=== PATIENT | male | born 1965 | race Caucasian/White ===

== ENCOUNTER → 2016-07-09 | Outpatient (CLI) | payer BC ==
[~2016-07-09] MED LIST: ESCI1TAB6 PO; LEVO175T3 PO; MULT-506 PO
[2016-07-09 11:01] LABS: ALT/SGPT 51 U/L (12-78); BLOOD UREA NITROGEN 13 mg/dl (7-18); CALCIUM 9.2 mg/dl (8.5-10.1); CARBON DIOXIDE 26 mmol/L (21-32); CHLORIDE 106 mmol/L (98-107); CHOLESTEROL 173 mg/dl (0-200); GLUCOSE 92 mg/dl (70-99); SODIUM 142 mmol/L (136-145)
[2016-07-09 11:12] LABS: ALB/GLOB RATIO 1.1 (0.9-2); ALKALINE PHOSPHATASE 60 U/L (45-117); AST/SGOT 28 U/L (15-37); HDL CHOLESTEROL 58 mg/dl; LDL CHOLESTEROL CALCULATED 92 mg/dl; TRIGLYCERIDES 113 mg/dl (0-150); VERY LOW DENSITY LIPOPROT CALC 23 mg/dl
== END | disposition home or self-care (01) ==
LOC: C.LABBC 07:49
PROVIDERS: ATTEND Nurse Practitioner Family
DX: E03.9 Hypothyroidism, unspecified (principal); E78.5 Hyperlipidemia, unspecified

== ENCOUNTER → 2017-02-04 | Outpatient (CLI) | payer BC ==
[2017-02-04 11:22] LABS: ALT/SGPT 36 U/L (12-78); AST/SGOT 26 U/L (15-37); BLOOD UREA NITROGEN 21 mg/dl (7-18); BUN/CREATININE RATIO 19.4 (10-20); CALCIUM 8.3 mg/dl (8.5-10.1); CARBON DIOXIDE 29 mmol/L (21-32); CHLORIDE 107 mmol/L (98-107); GLUCOSE 89 mg/dl (70-99); POTASSIUM 3.9 mmol/L (3.5-5.1); SODIUM 142 mmol/L (136-145)
[2017-02-04 11:33] LABS: ALB/GLOB RATIO 1.1 (0.9-2); ALKALINE PHOSPHATASE 69 U/L (45-117); CHOLESTEROL 172 mg/dl (0-200); CHOLESTEROL/HDL RATIO 2.6; HDL CHOLESTEROL 65 mg/dl; LDL CHOLESTEROL CALCULATED 94 mg/dl; TRIGLYCERIDES 63 mg/dl (0-150); VERY LOW DENSITY LIPOPROT CALC 13 mg/dl
== END | disposition home or self-care (01) ==
LOC: C.LABBC 07:41
PROVIDERS: ATTEND Nurse Practitioner Family
DX: E78.5 Hyperlipidemia, unspecified (principal); E03.9 Hypothyroidism, unspecified

== ENCOUNTER → 2017-03-18 | Outpatient (CLI) | payer BC ==
[2017-03-22 16:21] LABS: 18KDIGG BAND NONREACTIVE (NONREACTIVE); 23KDIGG BAND NONREACTIVE (NONREACTIVE); 23KDIGM BAND NONREACTIVE (NONREACTIVE); 28KDIGG BAND NONREACTIVE (NONREACTIVE); 30KDIGG BAND NONREACTIVE (NONREACTIVE); 39KDIGG BAND NONREACTIVE (NONREACTIVE); 39KDIGM BAND NONREACTIVE (NONREACTIVE); 41KDIGG BAND REACTIVE (NONREACTIVE); 41KDIGM BAND NONREACTIVE (NONREACTIVE); 45KDIGG BAND NONREACTIVE (NONREACTIVE); 58KDIGG BAND NONREACTIVE (NONREACTIVE); 66KDIGG BAND REACTIVE (NONREACTIVE); 93KDIGG BAND NONREACTIVE (NONREACTIVE)
== END | disposition home or self-care (01) ==
LOC: C.LABBC 08:10
PROVIDERS: ATTEND Nurse Practitioner Family
DX: H90.5 Unspecified sensorineural hearing loss (principal); H93.A9 Pulsatile tinnitus, unspecified ear

== ENCOUNTER → 2017-08-09 | Outpatient (CLI) | payer OTHER ==
[2017-08-09 11:22] LABS: ALBUMIN 3.7 gm/dl (3.4-5.0); ALT/SGPT 78 U/L (12-78); AST/SGOT 30 U/L (15-37); BLOOD UREA NITROGEN 13 mg/dl (7-18); CALCIUM 8.8 mg/dl (8.5-10.1); CARBON DIOXIDE 28 mmol/L (21-32); CHOLESTEROL 157 mg/dl (0-200); CREATININE 0.99 mg/dl (0.60-1.40); GLUCOSE 93 mg/dl (70-99); POTASSIUM 3.8 mmol/L (3.5-5.1); SODIUM 140 mmol/L (136-145)
[2017-08-09 11:31] LABS: ALKALINE PHOSPHATASE 54 U/L (45-117); LDL CHOLESTEROL CALCULATED 92 mg/dl; TOTAL PROTEIN 7.3 gm/dl (6.4-8.2)
== END | disposition home or self-care (01) ==
LOC: C.LABBC 08:17
PROVIDERS: ATTEND Nurse Practitioner Family
DX: E03.9 Hypothyroidism, unspecified (principal); E78.5 Hyperlipidemia, unspecified

== ENCOUNTER 2025-04-16 14:16 | Observation (INO) ==
[2025-04-16 14:59] LABS: Hematocrit (blood only) 45.9 % (42.0-52.0); Hemoglobin 15.8 g/dL (14.0-18.0); Immature Granulocytes # (auto) 0.06 K/uL (0.01-0.20); Immature Granulocytes % (auto) 0.4 %; Mean Corpuscular Hemoglobin 31.2 pg (25.0-34.0); Mean Corpuscular Volume 90.5 fL (80.0-100.0); Platelet Count 243 K/uL (130-400); RDW Standard Deviation 43.8 fL (36.4-46.3); Red Blood Count 5.07 M/uL (4.70-6.10); White Blood Count 16.29 K/ul (4.8-10.8)
[2025-04-16] MEDS: SODIUM CHLORIDE 0.9% 1,000 ML IV ONE (15:00)
--- NOTE | 2025-04-16 15:13 | XRay Report ---
XR chest 1V not portable CLINICAL HISTORY: Chest pain, nonspecific COMPARISON STUDY: 08/22/2023 FINDINGS: Heart size and pulmonary vasculature are normal. No consolidation or pleural effusion. No p neumothorax. IMPRESSION: No acute findings. ACT 112: Negative or not required by law. Electronically signed by: Joao Angulo M.D. 04/16/2025 3:12 PM
[2025-04-16 15:17] LABS: Alanine Aminotransferase 26.0 U/L (7-52); Albumin Globulin Ratio 1.5 (0.9-2); Albumin Level 4.6 gm/dl (3.4-5.0); Alkaline Phosphatase 74.0 U/L (34-104); Anion Gap 7.0 (3-11); Bilirubin,Total 1.0 mg/dl (0.2-1.0); Blood Urea Nitrogen 21.0 mg/dl (6-23); Calcium 9.7 mg/dl (8.6-10.3); Carbon Dioxide 25.0 mmol/L (21-32); Chloride 106.0 mmol/L (98-107); Creatinine Clr Calc Pharmacy 99.5 ml/min; Globulin 3.0 gm/dl (2.5-4.0); Glucose 108.0 mg/dl (70-99(Fasting)); Lipase 16.0 U/L (11-82); Magnesium 2.0 mg/dl (1.7-2.4); Potassium 3.7 mmol/L (3.5-5.1); Sodium 138.0 mmol/L (136-145); Total Protein 7.6 gm/dl (6.0-8.3)
[2025-04-16 15:32] LABS: Thyroid Stimulating Hormone 3.635 uIu/ml (0.300-4.500)
--- NOTE | 2025-04-16 16:52 | Emergency Department Note ---
Impression & Plan Chest pain, Lightheadedness, Elevated troponin ED Provider Note NAME: AYDEN DOBBS AGE: 60 SEX: M : 1965 ARRIVES VIA: Walk-In INFORMANT: Patient ED PROVIDER(S): Juan Jose Lozoya DO CHIEF COMPLAINT: Chest pain, lightheadedness HPI: Patient is a 60-year-old male with a past medical history of pulmonary node, hyperlipidemia who presents to the ER for symptoms that started today around 11 AM. He describes some mid chest pain which has been constant and subtle since then. Patient denies any arm pain but does admit that he felt his heart racing then. He is [employer] Watch was suggesting that maybe he had an episode of A-fib. Heart rate was racing from about 11-2. He notes he does not notice it anymore and is not giving any warnings. He was feeling lightheaded with changing of positions. He was not feeling dizzy. Lightheadedness with changing in position still occurs. Denies any dysuria, urgency or frequency. Patient denies swelling of calves, recent trips, history of immobilization or recent surgery, prior history of DVT, hemoptysis, history of malignancy, and history of smoking. ADDITIONAL HISTORY OBTAINED: Per HPI Chronic Medical/Social Conditions Affecting Care: Per HPI PAST MEDICAL HISTORY:See Below PAST SURGICAL HISTORY:See Below FAMILY HISTORY:See Below SOCIAL HISTORY:See Below HOME MEDICATIONS:See Below ALLERGIES:See Below VITALS:See Below PHYSICAL EXAMINATION: GENERAL: Sitting up in bed, alert, well appearing, well nourished, no distress, non-toxic EYE EXAM: normal conjunctiva. PERRL and EOM's grossly intact. OROPHARYNX: no exudate, no erythema, lips, buccal mucosa, and tongue normal and mucous membranes are moist NECK: supple, no nuchal rigidity, no adenopathy, non-tender LUNGS: Clear to auscultation. Normal chest wall mechanics HEART: no murmurs, S1 normal and S2 normal ABDOMEN: abdomen soft, non-tender, normo-active bowel sounds, no masses, no rebound or guarding. UPPER EXTREMITIES: upper extremities are grossly normal. Radial pulses are equal bilaterally LOWER EXTREMITIES: No pitting edema. Calves are equal bilaterally NEURO EXAM: Normal sensorium, cranial nerves II-XII grossly intact, normal speech, no gross weakness of arms, no gross weakness of legs. MEDICAL DECISION MAKING: Patient is a 60-year-old male with a past medical history of hyperlipidemia who presents to the ER for the above-stated complaint. Patient while he was receiving blood work in the waiting room/triage had a near syncopal episode. He notes the lightheadedness only occurs when he changes positions. IV was established and blood work was obtained. Labs showed a mild leukocytosis of 16,000. No significant anemia. D-dimer was negative and low risk patient will not be pursued any further. CMP along with LFTs bilirubin and lipase was reassuring. TSH was normal. Initial troponin was negative. I had a protracted conversation with both the patient and the at bedside and recommended admission for observation and close monitoring of the telemetry and he declined. He was given IV fluids while here and was feeling better. He was also given aspirin. Patient was agreeable to getting a repeat troponin. This came back elevated at 24. Following this he was agreeable to staying overnight. Question if this was rate related due to the heart rates being elevated for 2 hours in the 130s. It was difficult to evaluate on the iPhone whether this truly was A- fib or not. He will remain on the monitor here. I discussed the case with the hospitalist for further evaluation management treatment. Consults/Care Managements Discussions: Per [facility] Triage Nursing notes reviewed. Limited review of prior medical records performed Vital Signs: reviewed and remarkable for no significant abnormalities Differential diagnosis: Cardiac ischemia, aortic dissection, pulmonary embolism, pneumothorax, pneumonia, pericarditis, myocarditis, esophageal rupture, GERD, cholecystitis, pancreatitis, musculoskeletal, as well as other pathologies. ER treatment provided: See below Diagnostics interpreted by me include EKG and cardiac monitoring as listed below: -Cardiac Monitoring: An order was placed for continuous cardiac monitoring. The monitor shows a rate of 71 with sinus rhythm. -ECG: Sinus rhythm rate is 90 Right axis no PVCs Nonspecific ST wave changes in lead III and aVF which is not significant change from previous T wave inversion in V2 which is new -Laboratory studies:Interpreted by me as stated above in MDM and shown below. Imaging studies: Xrays: As interpreted by me: Portable AP upright 1 view of the chest shows no focal Lutrate CTs show: none Procedures:none Critical Care: None Past Med/Surg History Problem List (Updated 04/16/25 @ 17:31 by Juan Jose Lozoya DO) Elevated troponin (Acute) Lightheadedness (Acute) Chest pain (Acute) Pulmonary nodule Erectile dysfunction Vitamin B 12 deficiency Vitamin D deficiency (Acute) Sensorineural hearing loss (Acute) Pulsatile tinnitus (Acute) Need for hepatitis C screening test (Acute) Hypothyroidism (Acute) Hyperlipidemia (Acute) Generalized anxiety disorder (Acute) Cerebral microvascular disease (Acute) Medical History Gluten intolerance History of cardiac murmur as a child Pulmonary nodule Hx of fracture of arm Hyperlipidemia Hypothyroidism History of bladder stone Generalized anxiety disorder Surgical History Hx of colonoscopy History of cystoscopy Family History Father Prostate cancer Diabetes Cardiac disorder Colon cancer Hypotension Myocardial infarction Mother Diabetes Vitamin B12 deficiency Hypertension Myocardial infarction Unknown Colon cancer Grandmother Hypertension Sister Kidney stones Multiple sclerosis Grandmother Rheumatoid arthritis Grandfather Alcoholism Denies family history of Ovarian cancer Breast cancer Social History Smoking Status: Never smoker Second Hand Exposure: No; Do You Dip or Chew Tobacco: No; Hx Alcohol Use: Yes Alcohol type: beer Alcohol Intake Frequency: 2-3 x/Week Hx Substance Use: No Preferred Language: Japanese Communication Ability: Effective Visual Impairment: No Limitations Hearing Ability: Use of Hearing Aid Security Shift Manager Required: No Beliefs That Will Affect Care: None marital status: Current Living Situation: Spouse current occupational status: retired 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 How many Children do You have: 2 Feels Safe at Home: Yes Childhood Exposure to Second-Hand Smoke: No Diet: regular caffeine: Yes during the past year weight has: remained stable Dental Care, Regularly: Yes Physical Activity Frequency: Daily Seatbelt Use: always Sunscreen Use: Yes Assistive Devices: Glasses and Hearing Aid - Bilateral Allergies Allergies Allergy/AdvReac Type Severity Reaction Status Date / Time gluten AdvReac Mild Nausea Verified 04/16/25 16:03 lactose AdvReac Mild Nausea Verified 04/16/25 16:03 Home Meds Home Medications Medication Instructions Recorded Confirmed cholecalciferol (vitamin D3) 50 2,000 units PO DAILY 01/07/19 04/16/25 mcg (2,000 unit) capsule multivitamin (Daily Multi-Vitamin 1 tab PO DAILY 01/07/19 04/16/25 tablet) escitalopram oxalate 5 mg tablet 5 mg PO DAILY 04/16/25 04/16/25 magnesium glycinate 120 mg (as 120 mg PO DAILY 04/16/25 04/16/25 glycinate) capsule omega-3 fatty acids 1,000 mg 1,000 mg PO DAILY 04/16/25 04/16/25 capsule zinc acetate 50 mg (zinc) capsule 50 mg PO DAILY 04/16/25 04/16/25 Previous Rx's Medication Instructions Recorded cyclobenzaprine 10 mg tablet 10 mg PO HS #20 tabs 08/05/24 albuterol sulfate 90 mcg/actuation 1 inh inhalation QID PRN shortness 02/25/25 aerosol inhaler of breath or wheezing #8.5 grams atorvastatin 20 mg tablet 20 mg PO QPM #90 tabs 02/25/25 coenzyme Q10 75 mg capsule (Ultra 75 mg PO DAILY #30 caps 02/25/25 CoQ10) levothyroxine 200 mcg tablet 200 mcg PO QAM #90 tabs 02/25/25 levothyroxine 25 mcg tablet 25 mcg PO QAM #90 tabs 02/25/25 sildenafil 50 mg tablet 50 mg PO DAILY PRN sexual activity 02/25/25 #20 tabs Results & Data (ED) Vital Signs Vital Signs - 24 hr 04/16/25 14:33 04/16/25 14:42 04/16/25 14:56 Temperature 36.6 C Temperature Source Temporal Artery Scan Pulse Rate 110 H Pulse Rate from SpO2 Sensor Respiratory Rate 20 Respiratory Effort / Characteristics Non-Labored Spontaneous Respiratory Depth Normal Respiratory Pattern Regular Blood Pressure 118/76 94/65 L Blood Pressure Mean 90 70 Blood Pressure Position Sitting Pulse Oximetry 97 Oxygen Delivery Method Room Air Room Air Sepsis Recent Fever Within 48 Hours No Sepsis New/Unexplained Change in Mental Status No Sepsis Action Taken by Nursing No Action Required 04/16/25 14:56 04/16/25 15:00 04/16/25 15:00 Temperature Temperature Source Pulse Rate Pulse Rate from SpO2 Sensor Respiratory Rate Respiratory Effort / Characteristics Respiratory Depth Respiratory Pattern Blood Pressure 94/65 L 102/77 102/77 Blood Pressure Mean 70 82 82 Blood Pressure Position Pulse Oximetry Oxygen Delivery Method Sepsis Recent Fever Within 48 Hours Sepsis New/Unexplained Change in Mental Status Sepsis Action Taken by Nursing 04/16/25 15:00 04/16/25 15:00 04/16/25 15:00 Temperature Temperature Source Pulse Rate Pulse Rate from SpO2 Sensor Respiratory Rate Respiratory Effort / Characteristics Respiratory Depth Respiratory Pattern Blood Pressure 102/77 102/77 102/77 Blood Pressure Mean 82 82 82 Blood Pressure Position Pulse Oximetry Oxygen Delivery Method Sepsis Recent Fever Within 48 Hours Sepsis New/Unexplained Change in Mental Status Sepsis Action Taken by Nursing 04/16/25 15:00 04/16/25 15:02 04/16/25 15:12 Temperature Temperature Source Pulse Rate 69 70 67 Pulse Rate from SpO2 Sensor 69 67 Respiratory Rate 19 14 Respiratory Effort / Characteristics Respiratory Depth Respiratory Pattern Blood Pressure Blood Pressure Mean Blood Pressure Position Pulse Oximetry 99 94 Oxygen Delivery Method Sepsis Recent Fever Within 48 Hours Sepsis New/Unexplained Change in Mental Status Sepsis Action Taken by Nursing 04/16/25 15:21 04/16/25 15:30 04/16/25 15:30 Temperature Temperature Source Pulse Rate 89 Pulse Rate from SpO2 Sensor 76 Respiratory Rate 14 Respiratory Effort / Characteristics Respiratory Depth Respiratory Pattern Blood Pressure 127/80 127/80 Blood Pressure Mean 95 95 Blood Pressure Position Pulse Oximetry 96 Oxygen Delivery Method Sepsis Recent Fever Within 48 Hours Sepsis New/Unexplained Change in Mental Status Sepsis Action Taken by Nursing 04/16/25 15:30 04/16/25 15:30 04/16/25 15:30 Temperature Temperature Source Pulse Rate Pulse Rate from SpO2 Sensor Respiratory Rate Respiratory Effort / Characteristics Respiratory Depth Respiratory Pattern Blood Pressure 127/80 127/80 127/80 Blood Pressure Mean 95 95 95 Blood Pressure Position Pulse Oximetry Oxygen Delivery Method Sepsis Recent Fever Within 48 Hours Sepsis New/Unexplained Change in Mental Status Sepsis Action Taken by Nursing 04/16/25 15:30 04/16/25 15:42 04/16/25 15:51 Temperature Temperature Source Pulse Rate 66 62 61 Pulse Rate from SpO2 Sensor 66 62 61 Respiratory Rate 15 15 13 Respiratory Effort / Characteristics Respiratory Depth Respiratory Pattern Blood Pressure Blood Pressure Mean Blood Pressure Position Pulse Oximetry 94 96 96 Oxygen Delivery Method Sepsis Recent Fever Within 48 Hours Sepsis New/Unexplained Change in Mental Status Sepsis Action Taken by Nursing 04/16/25 16:00 04/16/25 16:00 04/16/25 16:00 Temperature Temperature Source Pulse Rate Pulse Rate from SpO2 Sensor Respiratory Rate Respiratory Effort / Characteristics Respiratory Depth Respiratory Pattern Blood Pressure 107/76 107/76 107/76 Blood Pressure Mean 84 84 84 Blood Pressure Position Pulse Oximetry Oxygen Delivery Method Sepsis Recent Fever Within 48 Hours Sepsis New/Unexplained Change in Mental Status Sepsis Action Taken by Nursing 04/16/25 16:00 04/16/25 16:00 04/16/25 16:00 Temperature Temperature Source Pulse Rate 63 Pulse Rate from SpO2 Sensor 54 L Respiratory Rate 13 Respiratory Effort / Characteristics Respiratory Depth Respiratory Pattern Blood Pressure 107/76 107/76 Blood Pressure Mean 84 84 Blood Pressure Position Pulse Oximetry 96 Oxygen Delivery Method Sepsis Recent Fever Within 48 Hours Sepsis New/Unexplained Change in Mental Status Sepsis Action Taken by Nursing 04/16/25 16:12 04/16/25 16:21 04/16/25 16:30 Temperature Temperature Source Pulse Rate 62 61 59 L Pulse Rate from SpO2 Sensor 62 61 59 L Respiratory Rate 14 13 15 Respiratory Effort / Characteristics Respiratory Depth Respiratory Pattern Blood Pressure Blood Pressure Mean Blood Pressure Position Pulse Oximetry 95 95 96 Oxygen Delivery Method Sepsis Recent Fever Within 48 Hours Sepsis New/Unexplained Change in Mental Status Sepsis Action Taken by Nursing 04/16/25 16:30 04/16/25 16:30 04/16/25 16:30 Temperature Temperature Source Pulse Rate Pulse Rate from SpO2 Sensor Respiratory Rate Respiratory Effort / Characteristics Respiratory Depth Respiratory Pattern Blood Pressure 105/73 105/73 105/73 Blood Pressure Mean 79 79 79 Blood Pressure Position Pulse Oximetry Oxygen Delivery Method Sepsis Recent Fever Within 48 Hours Sepsis New/Unexplained Change in Mental Status Sepsis Action Taken by Nursing 04/16/25 16:30 04/16/25 16:30 04/16/25 16:42 Temperature Temperature Source Pulse Rate 58 L Pulse Rate from SpO2 Sensor 58 L Respiratory Rate 19 Respiratory Effort / Characteristics Respiratory Depth Respiratory Pattern Blood Pressure 105/73 105/73 Blood Pressure Mean 79 79 Blood Pressure Position Pulse Oximetry 97 Oxygen Delivery Method Sepsis Recent Fever Within 48 Hours Sepsis New/Unexplained Change in Mental Status Sepsis Action Taken by Nursing 04/16/25 16:51 04/16/25 17:00 04/16/25 17:00 Temperature Temperature Source Pulse Rate 58 L Pulse Rate from SpO2 Sensor 59 L Respiratory Rate 14 Respiratory Effort / Characteristics Respiratory Depth Respiratory Pattern Blood Pressure 129/89 129/89 Blood Pressure Mean 104 104 Blood Pressure Position Pulse Oximetry 97 Oxygen Delivery Method Sepsis Recent Fever Within 48 Hours Sepsis New/Unexplained Change in Mental Status Sepsis Action Taken by Nursing 04/16/25 17:00 04/16/25 17:00 04/16/25 17:00 Temperature Temperature Source Pulse Rate Pulse Rate from SpO2 Sensor Respiratory Rate Respiratory Effort / Characteristics Respiratory Depth Respiratory Pattern Blood Pressure 129/89 129/89 129/89 Blood Pressure Mean 104 104 104 Blood Pressure Position Pulse Oximetry Oxygen Delivery Method Sepsis Recent Fever Within 48 Hours Sepsis New/Unexplained Change in Mental Status Sepsis Action Taken by Nursing 04/16/25 17:00 04/16/25 17:12 Temperature Temperature Source Pulse Rate 65 56 L Pulse Rate from SpO2 Sensor 64 56 L Respiratory Rate 15 12 Respiratory Effort / Characteristics Respiratory Depth Respiratory Pattern Blood Pressure Blood Pressure Mean Blood Pressure Position Pulse Oximetry 95 97 Oxygen Delivery Method Sepsis Recent Fever Within 48 Hours Sepsis New/Unexplained Change in Mental Status Sepsis Action Taken by Nursing Laboratory Data 04/16/25 14:45 04/16/25 14:45 Lab Results 04/16/25 04/16/25 04/16/25 Range/Units 14:45 16:42 Unknown WBC 16.29 H (4.8-10.8) K/ul RBC 5.07 (4.70-6.10) M/uL Hgb 15.8 (14.0-18.0) g/dL Hct 45.9 (42.0-52.0) % MCV 90.5 (80.0-100.0) fL MCH 31.2 (25.0-34.0) pg MCHC 34.4 (32.0-36.0) g/dL RDW Std Deviation 43.8 (36.4-46.3) fL RDW Coeff of Diego 13.3 (11.5-14.5) % Plt Count 243 (130-400) K/uL MPV 9.4 (9.4-12.4) fL Immature Gran % (Auto) 0.4 % Neut % (Auto) 78.3 % Lymph % (Auto) 15.0 % Tillman % (Auto) 5.2 % Eos % (Auto) 0.7 % Baso % (Auto) 0.4 % Neut # (Auto) 12.77 H (1.40-6.50) K/uL Lymph # (Auto) 2.45 (1.20-3.40) K/uL Tillman # (Auto) 0.84 H (0.11-0.59) K/uL Eos # (Auto) 0.11 (0.00-0.50) K/uL Baso # (Auto) 0.06 (0.00-0.20) K/uL Immature Gran # (Auto) 0.06 (0.01-0.20) K/uL D-Dimer < 190 (0-500) ug/L FEU Sodium 138 (136-145) mmol/L Potassium 3.7 (3.5-5.1) mmol/L Chloride 106 (98-107) mmol/L Carbon Dioxide 25 (21-32) mmol/L Anion Gap 7 (3-11) BUN 21 (6-23) mg/dl Creatinine 0.97 (0.6-1.4) mg/dl Est Cr Clr Drug Dosing 99.5 ml/min eGFR 88.26 BUN/Creatinine Ratio 21.6 H (10-20) Glucose 108 H (70-99(Fasting)) mg/dl Calcium 9.7 (8.6-10.3) mg/dl Magnesium 2.0 (1.7-2.4) mg/dl Total Bilirubin 1.0 (0.2-1.0) mg/dl AST 27 (13-39) U/L ALT 26 (7-52) U/L Alkaline Phosphatase 74 (34-104) U/L Troponin I High Sens 9.2 23.8 H D (0-20) pg/ml Total Protein 7.6 (6.0-8.3) gm/dl Albumin 4.6 (3.4-5.0) gm/dl Globulin 3.0 (2.5-4.0) gm/dl Albumin/Globulin Ratio 1.5 (0.9-2) Lipase 16 (11-82) U/L TSH 3.635 (0.300-4.500) uIu/ml Administered Medications Discontinued Medications Aspirin (Aspirin Chew 324 Mg) 324 mg PO NOW STA Stop: 04/16/25 16:55 Last Admin: 04/16/25 16:59 Dose: 324 mg Documented By: federica Sodium Chloride (Nss) 1,000 mls @ 999 mls/hr IV .Q1H1M ONE Stop: 04/16/25 16:01 Last Infusion: 04/16/25 16:00 Dose: Infused Documented By: federica Admin: 04/16/25 15:00 Dose: 999 mls/hr Documented By: federica Imaging Data Radiologist's Impression: Chest X-Ray 04/16/25 14:35 XR chest 1V not portable CLINICAL HISTORY: Chest pain, nonspecific COMPARISON STUDY: 08/22/2023 FINDINGS: Heart size and pulmonary vasculature are normal. No consolidation or pleural effusion. No pneumothorax. IMPRESSION: No acute findings. ACT 112: Negative or not required by law. Electronically signed by: Joao Angulo M.D. 04/16/2025 3:12 PM Discharge Plan Visit Data Chief Complaint: Cardiac Assessment Stated Complaint: ATRIL FIBRULATION-RACING HEART, SOB, WEAK/DIZZY ED Provider: Juan Jose Lozoya Discharge Problem: Chest pain, Lightheadedness, Elevated troponin Patient Disposition: Admitted As Inpatient Condition: Fair Forms Stand Alone Forms: [facility], Important Visit Information Prescriptions Prescriptions: No Action cholecalciferol (vitamin D3) 2,000 unit capsule 2,000 units PO DAILY multivitamin [Daily Multi-Vitamin] tablet 1 tab PO DAILY cyclobenzaprine 10 mg tablet 10 mg PO HS Qty: 20 0RF Ultra CoQ10 75 mg capsule 75 mg PO DAILY Qty: 30 0RF atorvastatin 20 mg tablet 20 mg PO QPM Qty: 90 2RF levothyroxine 200 mcg tablet 200 mcg PO QAM Qty: 90 2RF Rx Instructions: TOTAL DOSE 225 MCG--TAKES WITH 25 MCG TAB. levothyroxine 25 mcg tablet 25 mcg PO QAM Qty: 90 1RF Rx Instructions: TOTAL DOSE 225 MCG--TAKES WITH 200 MCG TAB. sildenafil 50 mg tablet 50 mg PO DAILY PRN (Reason: sexual activity) Qty: 20 2RF Rx Instructions: administer 30 minutes to 4 hours before activity albuterol sulfate 90 mcg/actuation HFA aerosol inhaler 1 inh inhalation QID PRN (Reason: shortness of breath or wheezing) Qty: 8.5 0RF zinc acetate 50 mg (zinc) Capsule 50 mg PO DAILY omega-3 fatty acids 1,000 mg Capsule 1,000 mg PO DAILY magnesium glycinate 120 mg Capsule 120 mg PO DAILY escitalopram oxalate 5 mg tablet 5 mg PO DAILY Referrals Referrals: Estephania العراقي CRNP [Primary Care Provider] - Discharge Problem: Chest pain Qualifiers: Chest pain type: unspecified Qualified Code(s): R07.9 - Chest pain, unspecified
[2025-04-16] MEDS: ASPIRIN CHEW 324 MG PO STA (16:59)
--- NOTE | 2025-04-16 18:00 | History & Physical Report ---
Date of Service April 16, 2025 Assessment & Plan (1) Chest pain: Plan: Patient said he experienced some central chest tightness and also lightheadedness soon after working out. Over the past few months has noticed about 3-4 episodes of the same. Also said that his Apple Watch showed he had an episode of atrial fibrillation and during that. Said he had palpitations. Initial troponin 23, will monitor EKG did not show any ST changes, only sinus rhythm. Will monitor him on telemetry Trend troponin (2) Lightheadedness: Plan: He says he gets lightheaded after exercising. Here in the emergency department, his heart rate is 56, EKG did not show any ST changes only sinus Will monitor him on telemetry Last 2D echo done last year was within normal limits, EF 60 to 70% Will obtain another 2D echo Patient may benefit from exercise stress test (3) Elevated troponin: Plan: Mild elevation in troponin, could be due to demand No ST changes on EKG Will trend troponin. Plan Full code DVT prophylaxis SCD History of Present Illness Chief Complaint: Lightheadedness, chest pain Primary Care Provider: ANEESH Villareal This a 60-year-old male with a history of hypothyroidism who came to the hospital today for evaluation of chest pain and lightheadedness. According to the patient, around noon today shortly after he finished working out he noticed some central chest tightness and lightheadedness. And at the same time he noticed that his heart was racing. So he looked at his Apple Watch which suggested to him that he could be in atrial fibrillation and recommended going to the hospital for further evaluation. He said over the past couple of months he has had about 3-4 episodes of chest pain lightheadedness and also palpitations especially after working out. He denies shortness of breath leg swelling. Here in emergency department, EKG was done which showed sinus rhythm, chest x- ray did not show any acute pathology. WBC was 16,000 and troponin was mildly elevated at 23.8. He will be placed in observation for further management. Allergies Allergy/AdvReac Type Severity Reaction Status Date / Time gluten AdvReac Mild Nausea Verified 04/16/25 16:03 lactose AdvReac Mild Nausea Verified 04/16/25 16:03 Home Medications Medication Instructions Recorded Confirmed Type cholecalciferol (vitamin D3) 50 2,000 units PO DAILY 01/07/19 04/16/25 History mcg (2,000 unit) capsule multivitamin (Daily Multi-Vitamin 1 tab PO DAILY 01/07/19 04/16/25 History tablet) cyclobenzaprine 10 mg tablet 10 mg PO HS #20 tabs 08/05/24 04/16/25 Rx albuterol sulfate 90 mcg/actuation 1 inh inhalation QID PRN shortness 02/25/25 04/16/25 Rx aerosol inhaler of breath or wheezing #8.5 grams atorvastatin 20 mg tablet 20 mg PO QPM #90 tabs 02/25/25 04/16/25 Rx coenzyme Q10 75 mg capsule (Ultra 75 mg PO DAILY #30 caps 02/25/25 04/16/25 Rx CoQ10) levothyroxine 200 mcg tablet 200 mcg PO QAM #90 tabs 02/25/25 04/16/25 Rx levothyroxine 25 mcg tablet 25 mcg PO QAM #90 tabs 02/25/25 04/16/25 Rx sildenafil 50 mg tablet 50 mg PO DAILY PRN sexual activity 02/25/25 04/16/25 Rx #20 tabs escitalopram oxalate 5 mg tablet 5 mg PO DAILY 04/16/25 04/16/25 History magnesium glycinate 120 mg (as 120 mg PO DAILY 04/16/25 04/16/25 History glycinate) capsule omega-3 fatty acids 1,000 mg 1,000 mg PO DAILY 04/16/25 04/16/25 History capsule zinc acetate 50 mg (zinc) capsule 50 mg PO DAILY 04/16/25 04/16/25 History Past Med/Surg History Problem List (Updated 04/16/25 @ 17:31 by Juan Jose Lozoya DO) Elevated troponin (Acute) Lightheadedness (Acute) Chest pain (Acute) Pulmonary nodule Erectile dysfunction Vitamin B 12 deficiency Vitamin D deficiency (Acute) Sensorineural hearing loss (Acute) Pulsatile tinnitus (Acute) Need for hepatitis C screening test (Acute) Hypothyroidism (Acute) Hyperlipidemia (Acute) Generalized anxiety disorder (Acute) Cerebral microvascular disease (Acute) Medical History Gluten intolerance History of cardiac murmur as a child Pulmonary nodule Hx of fracture of arm Hyperlipidemia Hypothyroidism History of bladder stone Generalized anxiety disorder Surgical History Hx of colonoscopy History of cystoscopy Family History Father Prostate cancer Diabetes Cardiac disorder Colon cancer Hypotension Myocardial infarction Mother Diabetes Vitamin B12 deficiency Hypertension Myocardial infarction Unknown Colon cancer Grandmother Hypertension Sister Kidney stones Multiple sclerosis Grandmother Rheumatoid arthritis Grandfather Alcoholism Denies family history of Ovarian cancer Breast cancer Social History Smoking Status: Never smoker Second Hand Exposure: No; Do You Dip or Chew Tobacco: No; Hx Alcohol Use: Yes Alcohol type: beer Alcohol Intake Frequency: 2-3 x/Week Hx Substance Use: No Preferred Language: [place] Communication Ability: Effective Visual Impairment: No Limitations Hearing Ability: Use of Hearing Aid Inventory Analyst Required: No Beliefs That Will Affect Care: None marital status: Current Living Situation: Spouse current occupational status: 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 Physical Exam Physical Exam: The patient is awake, alert and oriented 3, well developed and well nourished, normocephalic and atraumatic, lying in bed and in no acute distress. HEENT--PERRL, EOMI, mucous membranes and oropharynx mildly dry Neck--supple. No JVD. No bruits. Thyroid normal, trachea midline, no adenopathy. Heart--normal S1 and S2. No murmurs, rubs or gallops. Lungs--clear bilaterally, no respiratory distress, no accessory muscle use. Abdomen--normal bowel sounds and soft. Extremities--no cyanosis or clubbing. No edema. Dermatologic--normal skin turgor, normal color, no abnormal lymph nodes, no rash. Neurologic--cranial nerves II through XII grossly intact. Rheumatologic--normal range of motion. Psychiatric--normal affect. Results & Data Results & Data Vital Signs (Past 12 Hours) Vital Signs Temp Pulse Resp BP Pulse Ox O2 Del Method 04/16/25 17:12 56 L 12 97 04/16/25 17:00 65 15 95 04/16/25 17:00 129/89 04/16/25 17:00 129/89 04/16/25 17:00 129/89 04/16/25 17:00 129/89 04/16/25 17:00 129/89 04/16/25 16:51 58 L 14 97 04/16/25 16:42 58 L 19 97 04/16/25 16:30 105/73 04/16/25 16:30 105/73 04/16/25 16:30 105/73 04/16/25 16:30 105/73 04/16/25 16:30 105/73 04/16/25 16:30 59 L 15 96 04/16/25 16:21 61 13 95 04/16/25 16:12 62 14 95 04/16/25 16:00 63 13 96 04/16/25 16:00 107/76 04/16/25 16:00 107/76 04/16/25 16:00 107/76 04/16/25 16:00 107/76 04/16/25 16:00 107/76 04/16/25 15:51 61 13 96 04/16/25 15:42 62 15 96 04/16/25 15:30 66 15 94 04/16/25 15:30 127/80 04/16/25 15:30 127/80 04/16/25 15:30 127/80 04/16/25 15:30 127/80 04/16/25 15:30 127/80 04/16/25 15:21 89 14 96 04/16/25 15:12 67 14 94 04/16/25 15:02 70 04/16/25 15:00 69 19 99 04/16/25 15:00 102/77 04/16/25 15:00 102/77 04/16/25 15:00 102/77 04/16/25 15:00 102/77 04/16/25 15:00 102/77 04/16/25 14:56 94/65 L 04/16/25 14:56 94/65 L 04/16/25 14:42 Room Air 11/21/25 14:33 97.9 F 110 H 20 118/76 97 Room Air PG Care Time/CCT Total # of Minutes Spent Total Time Spent with Patient: Total time spent is greater than 50% in coordination of care (as documented) at patient's floor/unit and/or counseling patient: Coding Level of Care Code 74771 INT INP/OBS CARE 2/55MIN Diagnoses Chest pain R07.9 Chest pain type: unspecified Lightheadedness R42 Elevated troponin R79.89 Time Spent (min) 55 (1) Chest pain Chest pain type: unspecified Qualified Code(s): R07.9 - Chest pain, unspecified
[2025-04-16] MEDS ORDERED: ACETAMINOPHEN 325 MG TAB PO PRN (19:15)
[2025-04-16] MEDS ORDERED: ALBUTEROL HFA 8 GM INHALER INH PRN (19:15)
[2025-04-16] MEDS: ATORVASTATIN 20 MG TAB PO SCH (20:42)
--- NOTE | 2025-04-16 21:52 | Electrocardiogram Report ---
Test Reason : Blood Pressure : */* mmHG Vent. Rate : 90 BPM Atrial Rate : 90 BPM P-R Int : 170 ms QRS Dur : 80 ms QT Int : 344 ms P-R-T Axes : 76 90 19 degrees QTcB Int : 420 ms Normal sinus rhythm Rightward axis Low voltage QRS Cannot rule out Anterior infarct , age undetermined Abnormal ECG When compared with ECG of 22-Aug-2023 08:39, Minimal criteria for Anterior infarct are now Present Confirmed by Joel Soto [id number]) on 04/16/2025 9:52:22 PM Referred By: Confirmed By: Joel Soto
[2025-04-17] MEDS: LEVOTHYROXINE SODIUM 25 MCG TABLET PO SCH (06:15)
[2025-04-17] MEDS: LEVOTHYROXINE SODIUM 200 MCG TABLET PO SCH (06:15)
[2025-04-17 08:22] VITALS: TEMP 98.2; O2SAT 95
[2025-04-17] MEDS: ESCITALOPRAM OXALATE 10 MG TAB PO SCH (08:45)
--- NOTE | 2025-04-17 11:54 | Hospitalist Progress Note ---
Date of Service April 17, 2025 Assessment & Plan (1) Chest pain: Plan: Patient said he experienced some central chest tightness and also lightheadedness soon after working out. Over the past few months has noticed about 3-4 episodes of the same. Also said that his Apple Watch showed he had an episode of atrial fibrillation and during that. Said he had palpitations. Initial troponin 23,Peaked at 35, trended down to 21 EKG did not show any ST changes, only sinus rhythm. Will monitor him on telemetry Trend troponin Cardiology on consult (2) Lightheadedness: Plan: He says he gets lightheaded after exercising. Here in the emergency department, his heart rate is 56, EKG did not show any ST changes only sinus Will monitor him on telemetry Last 2D echo done last year was within normal limits, EF 60 to 70% Repeat 2D echo has been done, result pending Patient may benefit from exercise stress test, And outpatient athletic monitor Will defer to cardiology (3) Elevated troponin: Plan: Mild elevation in troponin, could be due to demand No ST changes on EKG Will trend troponin. Plan Full code DVT prophylaxis SCD Admission and Anticipated Discharge Date Admission Date: April 16, 2025 Subjective Patient seen and examined, denies chest pain Review of Systems Review of Systems: All systems reviewed are negative, apart from the ones contained in the history. Physical Exam Physical Exam: The patient is awake, alert and oriented 3, well developed and well nourished, normocephalic and atraumatic, lying in bed and in no acute distress. HEENT--PERRL, EOMI, mucous membranes and oropharynx mildly dry Neck--supple. No JVD. No bruits. Thyroid normal, trachea midline, no adenopathy. Heart--normal S1 and S2. No murmurs, rubs or gallops. Lungs--clear bilaterally, no respiratory distress, no accessory muscle use. Abdomen--normal bowel sounds and soft. Extremities--no cyanosis or clubbing. No edema. Dermatologic--normal skin turgor, normal color, no abnormal lymph nodes, no rash. Neurologic--cranial nerves II through XII grossly intact. Rheumatologic--normal range of motion. Psychiatric--normal affect. Results & Data Results & Data Vital Signs (Past 12 Hours) Vital Signs Temp Pulse Resp BP Pulse Ox O2 Del Method 04/17/25 08:22 98.2 F 84 22 121/87 95 Room Air 04/17/25 04:38 97.7 F 54 L 17 128/77 97 Room Air 04/17/25 00:11 97.5 F L 57 L 16 116/66 98 Room Air PG Care Time/CCT Total # of Minutes Spent Total Time Spent with Patient: Total time spent is greater than 50% in coordination of care (as documented) at patient's floor/unit and/or counseling patient: Coding Level of Care Code 82284 SUB INP/OBS CARE 2/35MIN Diagnoses Chest pain R07.9 Chest pain type: unspecified Lightheadedness R42 Elevated troponin R79.89 Time Spent (min) 35 (1) Chest pain Chest pain type: unspecified Qualified Code(s): R07.9 - Chest pain, unspecified
[2025-04-17 12:04] VITALS: PULSE 58; RESP 24
--- NOTE | 2025-04-17 13:23 | Cardiology Consultation ---
Date of Consultation April 17, 2025 Assessment & Plan (1) Irregular heart beat: (2) Tachycardia: (3) Lightheadedness: (4) Elevated troponin: (5) Hyperlipidemia: Plan I think it is okay for him to be discharged at this time. I did ask that he start taking an aspirin 81 mg daily. I will follow-up with him as an outpatient and schedule him for an event monitor and an outpatient stress echo. I will follow-up with him afterwards. If his symptoms return prior to the evaluation he should touch base with me or come back to the emergency room. Thank you for allowing me to participate in his care. I look forward to participating in his care with you. History of Present Illness Reason for Consultation: palpitations, tachycardia Attending Physician: Luzmaria Schrader MD History of Present Illness This a 60-year-old male with a history of hypothyroidism who came to the hospital yesterday for evaluation of lightheadedness. According to the patient, around noon today shortly after he finished working out he noticed some central chest tightness and lightheadedness. His Apple watch recorded his heart rhythm as being irregular. And at the same time he noticed that his heart was racing. So he looked at his Apple Watch which suggested to him that he could be in atrial fibrillation and recommended going to the hospital for further evaluation. I was able to review those rhythm strips and they are suggestive of A-fib but there is some artifact. He is not sure if this was chest discomfort or just an awareness of his heartbeat in his heart rhythm. His EKG shows normal sinus rhythm there were no acute ST-T wave changes noted. I reviewed his echo and his LV function is normal. His aortic valve is trileaflet. The noncoronary cusp is moderately calcified and restricted. He has not had a recurrence of his symptoms since he has been in the hospital. We discussed completing his workup as an outpatient with an event monitor as well as doing a stress echo and he is in agreement. Allergies Allergy/AdvReac Type Severity Reaction Status Date / Time gluten AdvReac Mild Nausea Verified 04/16/25 16:03 lactose AdvReac Mild Nausea Verified 04/16/25 16:03 Home Medications Medication Instructions Recorded Confirmed Type cholecalciferol (vitamin D3) 50 2,000 units PO DAILY 01/07/19 04/16/25 History mcg (2,000 unit) capsule multivitamin (Daily Multi-Vitamin 1 tab PO DAILY 01/07/19 04/16/25 History tablet) cyclobenzaprine 10 mg tablet 10 mg PO HS #20 tabs 08/05/24 04/16/25 Rx albuterol sulfate 90 mcg/actuation 1 inh inhalation QID PRN shortness 02/25/25 04/16/25 Rx aerosol inhaler of breath or wheezing #8.5 grams atorvastatin 20 mg tablet 20 mg PO QPM #90 tabs 02/25/25 04/16/25 Rx coenzyme Q10 75 mg capsule (Ultra 75 mg PO DAILY #30 caps 02/25/25 04/16/25 Rx CoQ10) levothyroxine 200 mcg tablet 200 mcg PO QAM #90 tabs 02/25/25 04/16/25 Rx levothyroxine 25 mcg tablet 25 mcg PO QAM #90 tabs 02/25/25 04/16/25 Rx sildenafil 50 mg tablet 50 mg PO DAILY PRN sexual activity 02/25/25 04/16/25 Rx #20 tabs escitalopram oxalate 5 mg tablet 5 mg PO DAILY 04/16/25 04/16/25 History magnesium glycinate 120 mg (as 120 mg PO DAILY 04/16/25 04/16/25 History glycinate) capsule omega-3 fatty acids 1,000 mg 1,000 mg PO DAILY 04/16/25 04/16/25 History capsule zinc acetate 50 mg (zinc) capsule 50 mg PO DAILY 04/16/25 04/16/25 History Patient History Medical History Gluten intolerance History of cardiac murmur as a child Pulmonary nodule monitored by pcp Hx of fracture of arm left elbow, > 20 years Hyperlipidemia Hypothyroidism History of bladder stone > 20 years Generalized anxiety disorder Surgical History Hx of colonoscopy History of cystoscopy removal of bladder stone, > 20 years Family History Father Prostate cancer Diabetes Cardiac disorder Colon cancer Hypotension Myocardial infarction Mother Diabetes Vitamin B12 deficiency Hypertension Myocardial infarction Unknown Colon cancer Grandmother Hypertension Sister Kidney stones Multiple sclerosis Grandmother Rheumatoid arthritis Grandfather Alcoholism Denies family history of Ovarian cancer Breast cancer Social History Smoking Status: Never smoker Second Hand Exposure: No; Do You Dip or Chew Tobacco: No; Hx Alcohol Use: Yes Alcohol type: beer Alcohol Intake Frequency: 2-3 x/Week Hx Substance Use: No Preferred Language: Spanish Communication Ability: Effective Visual Impairment: No Limitations Hearing Ability: Use of Hearing Aid Chain Puller Required: No Beliefs That Will Affect Care: None marital status: Current Living Situation: Spouse current occupational status: 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 How many Children do You have: 2 Feels Safe at Home: Yes Childhood Exposure to Second-Hand Smoke: No Diet: regular caffeine: Yes during the past year weight has: remained stable Dental Care, Regularly: Yes Physical Activity Frequency: Daily Seatbelt Use: always Sunscreen Use: Yes Assistive Devices: Glasses and Hearing Aid - Right Review of Systems Review of Systems: All systems reviewed & are unremarkable except as noted in HPI & below Physical Exam Physical Exam: Awake alert oriented x 3 in no distress Respiratory: normal respiratory effort, lungs clear to auscultation Cardiovascular: Heart is regular there is a soft systolic ejection murmur at the base consistent with aortic sclerosis Results & Data Vital Signs (Past 12 Hours) Vital Signs Temp Pulse Resp BP Pulse Ox O2 Del Method 04/17/25 12:02 36.8 C 58 L 24 137/76 95 Room Air 04/17/25 08:22 36.8 C 84 22 121/87 95 Room Air 04/17/25 04:38 36.5 C 54 L 17 128/77 97 Room Air Laboratory Results Abnormal lab results 04/16/25 04/16/25 04/16/25 Range/Units 14:45 16:42 20:16 WBC 16.29 H (4.8-10.8) K/ul Neut # (Auto) 12.77 H (1.40-6.50) K/uL Lee # (Auto) 0.84 H (0.11-0.59) K/uL BUN/Creatinine Ratio 21.6 H (10-20) Glucose 108 H (70-99(Fasting)) mg/dl Troponin I High Sens 23.8 H D 35.2 H D (0-20) pg/ml 04/17/25 Range/Units 07:32 WBC (4.8-10.8) K/ul Neut # (Auto) (1.40-6.50) K/uL Lee # (Auto) (0.11-0.59) K/uL BUN/Creatinine Ratio (10-20) Glucose (70-99(Fasting)) mg/dl Troponin I High Sens 21.6 H D (0-20) pg/ml ECG Additional Comments: NSR NS ST changes similar to 2023
--- NOTE | 2025-04-17 13:27 | Discharge Summary ---
Date of Service April 17, 2025 Admission HPI Per Admitting Provider This a 60-year-old male with a history of hypothyroidism who came to the hospital today for evaluation of chest pain and lightheadedness. According to the patient, around noon today shortly after he finished working out he noticed some central chest tightness and lightheadedness. And at the same time he noticed that his heart was racing. So he looked at his Apple Watch which suggested to him that he could be in atrial fibrillation and recommended going to the hospital for further evaluation. He said over the past couple of months he has had about 3-4 episodes of chest pain lightheadedness and also palpitations especially after working out. He denies shortness of breath leg swelling. Here in emergency department, EKG was done which showed sinus rhythm, chest x- ray did not show any acute pathology. WBC was 16,000 and troponin was mildly elevated at 23.8. He will be placed in observation for further management. Admission Exam (Per Admitting) Constitutional The patient is awake, alert and oriented 3, well developed and well nourished, normocephalic and atraumatic, lying in bed and in no acute distress. HEENT--PERRL, EOMI, mucous membranes and oropharynx mildly dry Neck--supple. No JVD. No bruits. Thyroid normal, trachea midline, no adenopathy. Heart--normal S1 and S2. No murmurs, rubs or gallops. Lungs--clear bilaterally, no respiratory distress, no accessory muscle use. Abdomen--normal bowel sounds and soft. Extremities--no cyanosis or clubbing. No edema. Dermatologic--normal skin turgor, normal color, no abnormal lymph nodes, no rash. Neurologic--cranial nerves II through XII grossly intact. Rheumatologic--normal range of motion. Psychiatric--normal affect. Discharge Data Consultations 04/16/25 17:31 ED Decision to Admit Stat 04/17/25 07:24 Consult Cardiology Routine Hospital Course (1) Chest pain: Patient said he experienced some central chest tightness and also lightheadedness soon after working out. Over the past few months has noticed about 3-4 episodes of the same. Also said that his Apple Watch showed he had an episode of atrial fibrillation and during that. Said he had palpitations. Initial troponin 23,Peaked at 35, trended down to 21 EKG did not show any ST changes, only sinus rhythm. 2 D ECHO is normal Per cardiology, will need outpatient stress ECHO and event monitor (2) Lightheadedness: He says he gets lightheaded after exercising. Here in the emergency department, his heart rate is 56, EKG did not show any ST changes only sinus Will monitor him on telemetry Last 2D echo done last year was within normal limits, EF 60 to 70% Repeat 2 D ECHO is normal Per cardiology, will need outpatient stress ECHO and event monitor (3) Elevated troponin: Mild elevation in troponin, could be due to demand No ST changes on EKG Will trend troponin. Plan Full code DVT prophylaxis SCD Coding Level of Care Code 89475 INP/OBS DISCH >30 MIN Diagnoses Chest pain R07.9 Chest pain type: unspecified Lightheadedness R42 Elevated troponin R79.89 Time Spent (min) 35
[2025-04-17 13:38] VITALS: BP 114/74
== END 2025-04-17 13:59 | disposition home or self-care (01) ==
LOC: ED 14:16 → 2E 14:16